=== PATIENT | female | born 1940 | race Caucasian/White ===

== ENCOUNTER 2019-02-13 02:32 | Inpatient (IN) | payer OTHER ==
[~2019-02-13] VITALS: Ht 154.9 cm; Wt 54.4 kg
[2019-02-13 02:36] VITALS: Ht 154.9 cm; Wt 54.4 kg
[2019-02-13 03:29] LABS: BASOPHIL % 0.6 % (0-2); PLATELET COUNT 292 x10^3mcL (130-400); RED CELL DISTRIBUTION WIDTH 13.1 % (11.5-14.5)
[2019-02-13 03:59] LABS: CALCIUM 10.3 mg/dL (8.5-10.1); CARBON DIOXIDE 24.5 mmol/L (21-32); CHLORIDE SERUM 106 mmol/L (98-107); CREATININE SERUM 0.9 mg/dL (0.6-1.0); GLUCOSE SERUM 123 mg/dL (74-106); POTASSIUM SERUM 4.7 mmol/L (3.5-5.1); SODIUM SERUM 144 mmol/L (136-145)
[2019-02-13 05:52] VITALS: BP 155/71
[2019-02-13 09:00] VITALS: BP 140/68
[2019-02-13 18:12] VITALS: BP 154/70
[2019-02-13 21:41] VITALS: BP 113/71
[2019-02-14 06:17] VITALS: BP 151/77
[2019-02-14 06:39] LABS: BASOPHIL % 0.4 % (0-2); PLATELET COUNT 252 x10^3mcL (130-400); RED CELL DISTRIBUTION WIDTH 13.1 % (11.5-14.5)
[2019-02-14 07:02] LABS: CALCIUM 8.3 mg/dL (8.5-10.1); CARBON DIOXIDE 25.2 mmol/L (21-32); CHLORIDE SERUM 110 mmol/L (98-107); CREATININE SERUM 0.6 mg/dL (0.6-1.0); GLUCOSE SERUM 108 mg/dL (74-106); MAGNESIUM 1.8 mg/dL (1.8-2.4); PHOSPHOROUS 2.9 mg/dL (2.5-4.9); SODIUM SERUM 144 mmol/L (136-145)
[2019-02-14 09:58] VITALS: BP 133/64
[2019-02-14] MEDS ORDERED: MOT800 PO (14:39)
[2019-02-14] MEDS ORDERED: PEPCID20 MG PO (14:43)
[2019-02-14 14:55] VITALS: BP 133/64
== END 2019-02-14 15:53 | disposition home or self-care (01) | DRG 544 ==
LOC: ED 02:32 → MU 04:34
PROVIDERS: Emergency Medicine; Internal Medicine; ADMIT Internal Medicine
PROC: 0QSGXZZ Reposition Right Tibia, External Approach (ICD-10-PCS; principal; 2019-02-13)
DX: M80.871A Other osteoporosis with current pathological fracture, right ankle and foot, initial encounter for fracture (principal); F41.9 Anxiety disorder, unspecified; W18.39XA Other fall on same level, initial encounter; Y93.89 Activity, other specified; Y92.89 Other specified places as the place of occurrence of the external cause; Z68.22 Body mass index [BMI] 22.0-22.9, adult
CPT/HCPCS: G0378; J1885; J2704; J7030; Q0092

== ENCOUNTER 2019-02-19 06:22 | Observation (INO) | payer OTHER ==
[2019-02-16 13:42] LABS: BASOPHIL % 0.7 % (0-2); PLATELET COUNT 273 x10^3mcL (130-400); RED CELL DISTRIBUTION WIDTH 12.9 % (11.5-14.5)
[2019-02-16 13:52] LABS: CALCIUM 9.3 mg/dL (8.5-10.1); CARBON DIOXIDE 26.7 mmol/L (21-32); CHLORIDE SERUM 106 mmol/L (98-107); CREATININE SERUM 0.8 mg/dL (0.6-1.0); GLUCOSE SERUM 113 mg/dL (74-106); POTASSIUM SERUM 3.2 mmol/L (3.5-5.1); SODIUM SERUM 143 mmol/L (136-145)
--- NOTE | 2019-02-16 15:00 | NUR ---
RECEIVED PREOP LAB TESTING RESULTS FROM LAB. K+=3.2. HV=[id number]. CXR=HYPEREXPANSION OF THE LUNGS SUGGESTING CHRONIC OBSTRUCTIVE PULMONARY DISEASE. EKG=SINUS OR ECTOPIC ATRIAL RHYTHM. NONSPECIFIC T ABNORMALITIES, LATERAL LEADS. CALL TO [facility]. SPOKE WITH DR GONZALEZ. UPDATED WITH LAB RESULTS. ORDERS TO CANCEL SURGERY AT THIS TIME. SHE WILL CALL PT TO DISCUSS FINDINGS AND PLAN OF CARE.
--- NOTE | 2019-02-16 15:15 | NUR ---
LAB RESULTS FAXED TO DR GONZALEZ AND PER HER REQUEST TO PTS PCP DR RENY STANTON.
[~2019-02-19] VITALS: Ht 154.9 cm; Wt 54.1 kg
--- NOTE | 2019-02-19 06:20 | NUR ---
PT ARRIVED IN ADMITTING TO CHECK IN FOR SURGERY. INITIALLY SURGERY WAS CANCELLED. CALL TO SURGERY TO CHECK ON STATUS. SPOKE WITH PALLAVI AND HE IS AWARE. TO HAVE BIOMETRY TEACHER CALL OUTPATIENT. PAGE TO DR GONZALEZ.
[~2019-02-19 06:22] MED LIST: MOT800 PO; PEPCID20 MG PO
--- NOTE | 2019-02-19 06:45 | NUR ---
SPOKE WITH DR GONZALEZ. SHE REPORTS "SPOKE WITH PT AND OR ON TUESDAY AND SHE IS STILL SCHEDULED FOR SURGERY THIS AM."
--- NOTE | 2019-02-19 06:55 | NUR ---
STAT SERUM POTASSIUM ORDERED PER DR GONZALEZ'S ORDER. LAB CALLED FOR STAT PREOP LAB DRAW.
--- NOTE | 2019-02-19 06:56 | NUR ---
DR GONZALEZ HERE IN OUTPATIENT DEPARTMENT TO SPEAK WITH PT AND DTR.
[2019-02-19 06:57] VITALS: BP 162/92
[2019-02-19 15:37] VITALS: BP 179/87
--- NOTE | 2019-02-19 15:40 | NUR ---
RECEIVED PT FROM OR VIA RAMAN. ORIENTED PT TO ROOM AND SURRUONDINGS. IV NOTED TO PATENT AND INTACT. INSTRUCTED PT ON THE USE OF CALL LIGHT FOR ASSISTANCE. ENDORSED PT TO PRIMARY NURSE MAGDIEL
[2019-02-19 16:10] LABS: CHOLESTEROL/HDL RATIO 3.1; MAGNESIUM 1.5 mg/dL (1.8-2.4); PHOSPHOROUS 3.5 mg/dL (2.5-4.9)
[2019-02-19 16:23] LABS: T3 TOTAL 0.94 ng/mL
[2019-02-19 16:32] LABS: FREE T4 1.37 ng/dL (0.76-1.46); FREE THYROXINE INDEX 3.2 ug/dL (1.4-4.5); T4(THYROXINE) 9.8 ug/dL (4.7-13.3)
--- NOTE | 2019-02-19 18:37 | NUR ---
BP ELEVATED, DR. CAMPBELL AWARE. PT GIVEN BP MED. SEE MAR. DENIES CHEST PAIN. NO DIZZINESS. NO HEADACHE. VISION WNL. NO TREMORS. NO N/V. CALM/COOPERATIVE. AA/OX4. REPORTS PAIN DECREASING TO RLE, TOLERABLE AT THIS TIME. DRESSING TO RLE CDI. IV WNL TO LH, NO REDNESS, NO SWELLING, NO INFILTRATION. PATENT AND FLUSHES WELL. SALINE LOCKED. FALL PRECAUTIONS IN PLACE. ASSISTED PT TO BEDPAN, VOIDS FREELY. BED IN LOW POSITION. CALL LIGHT WITHIN REACH. WILL ENDORSE TO ONCOMING SHIFT.
--- NOTE | 2019-02-19 20:00 | NUR ---
RECEIVED PT IN BED, RESTING QUIETLY.A/O X4. ABLE TO VERBALIZE NEEDS. RESP. EVEN AND UNLABORED. ON ROOM AIR, LUNG SOUNDS CLEAR BILAT. NO ACUTE DISTRESS NOTED. S/P ORIF RT ANKLE. LEG ELEVATED ON PILLOW, SPLINT TO RT LEG, ABLE TO WIGGLE TOES. DENIES PAIN OR ANY DISCOMFORT AT THIS TIME. HL TO LH, INTACT AND PATENT. AFEBRILE AND VITAL SIGNS STABLE. ASSISTED WITH HS CARE. CALL LIGHT WITHIN REACH. WILL CONTINUE TO MONITOR.
[2019-02-19 20:31] VITALS: BP 159/72
[2019-02-19 21:26] LABS: microscopic required? YES; urine erythrocyte 1+ (NEGATIVE)
--- NOTE | 2019-02-20 02:07 | NUR ---
NO COMPLAINTS NOTED. EYES CLOSED, APPEARS ASLEEP, EASILY AROUSABLE.RESP. EVEN AND UNLABORED. NO ACUTE DISTRESS NOTED. WILL CONTINUE TO MONITOR.
[2019-02-20 04:29] VITALS: BP 129/62
[2019-02-20 06:26] LABS: BASOPHIL % 0.2 % (0-2); PLATELET COUNT 271 x10^3mcL (130-400); RED CELL DISTRIBUTION WIDTH 13.4 % (11.5-14.5)
--- NOTE | 2019-02-20 06:27 | NUR ---
SLEPT WELL DURING THE NIGHT. NO COMPAINTS OF PAIN OR ANY DISCOMFORT NOTED. AFEBRILE AND VITAL SIGNS STABLE. RESP. EVEN AND UNLABORED. NO ACUTE DISTRESS NOTED. DUE MEDS GIVEN ORDERED.JENAE. WELL. RT LEG ELEVATED ON PILLOW, KEPT COMFORTABLE.VOIDING FREELY VIA BEDPAN. WILL CONTINUE TO MONITOR.
[2019-02-20 06:42] LABS: CALCIUM 8.9 mg/dL (8.5-10.1); CARBON DIOXIDE 25.6 mmol/L (21-32); CHLORIDE SERUM 102 mmol/L (98-107); CREATININE SERUM 0.6 mg/dL (0.6-1.0); GLUCOSE SERUM 126 mg/dL (74-106); MAGNESIUM 1.7 mg/dL (1.8-2.4); PHOSPHOROUS 3.3 mg/dL (2.5-4.9); POTASSIUM SERUM 3.5 mmol/L (3.5-5.1); SODIUM SERUM 139 mmol/L (136-145)
--- NOTE | 2019-02-20 07:20 | NUR ---
PT LAYING IN BED. AA/OX4. NO S/S OF ACUTE DISTRESS. NO SOB ON ROOM AIR. NO COMPLAINT OF PAIN AT THIS TIME. DRESSING TO RLE CDI. ELEVATED WITH PILLOW. SCD IN PLACE TO LLE. IV WNL TO LH, PATENT AND FLUSHES WELL. SALINE LOCKED. CALM/COOPERATIVE. NO CHEST PAIN. MEDSURG. BED IN LOW POSITION. CALL LIGHT WITHIN REACH. FALL PRECAUTIONS IN PLACE. INSTRUCTED TO USE CALL LIGHT TO CALL FOR ASSISTANCE PRN. VERBALIZED UNDERSTANDING. DAUGHTER AT BEDSIDE. WILL CONTINUE TO MONITOR.
[2019-02-20 09:32] VITALS: BP 137/58
--- NOTE | 2019-02-20 11:00 | NUR ---
PT COMPLAINT OF PAIN TO RLE, RATES 5/10, WORSE WITH MOVEMENT, RELIVED BY RELAXATION/REPOSITIONING AND MEDICATION. GIVEN PO PAIN MED. SEE MAR. AA/OX4. NO S/S OF ACUTE DISTRESS. NO SOB ON ROOM AIR. RLE ELEVATED WITH PILLOW. CALM/COOPERATIVE. ABLE TO MOVE TOES TO RLE, SENSATION WNL. CAP REFILLS <3 SEC RLE. DAUGHTER AT BEDSIDE. NO N/V. NO MIRZA. NO CHILLS. BED IN LOW POSITION. CALL LIGHT WITHIN REACH. WILL CONTINUE TO MONITOR.
[2019-02-20] MEDS ORDERED: LOV40I SC (13:51)
[2019-02-20] MEDS ORDERED: COLACE100 MG PO (13:53)
[2019-02-20 13:58] VITALS: BP 137/58
--- NOTE | 2019-02-20 15:25 | NUR ---
PT DISCHARGED TO HOME, AWAKE, ALERT, ORIENTED X4. DENIES PAIN. NO SOB ON ROOM AIR. FIBERGLASS CAST AND DRESSING TO RLE CDI. PULSES +2 BUE/BLE. CAP REFILLS <3 SEC BUE/BLE. SENSATION WNL TO BUE/BLE. PT DISCHARGE EDUCATION PROVIDED TO PATIENT. INSTRUCTED TO FOLLOW UP WITH PCP AT UPCOMING APPT. VERBALIZED UNDERSTANDING. IV REMOVED FROM LH, CATHETER IN TACT. PRESSURE APPLIED. SITE WNL. BELONGINGS WITH PATIENT. PRESCRIPTION WITH PATIENT. TAKEN BY WHEEL CHAIR TO DISCHARGE LOBBY BY JOSH VELÁSQUEZ ACCOMPANIED BY DAUGHTER.
== END 2019-02-20 16:24 | disposition home or self-care (01) | DRG 494 ==
LOC: DS 06:22 → OR 07:30 → MU 15:14
PROVIDERS: Internal Medicine; ADMIT Podiatrist Foot & Ankle Surgery
PROC: 0QSG04Z Reposition Right Tibia with Internal Fixation Device, Open Approach (ICD-10-PCS; 2019-02-19)
PROC: 0QSG04Z Reposition Right Tibia with Internal Fixation Device, Open Approach (ICD-10-PCS; 2019-02-19)
PROC: 0QSJ04Z Reposition Right Fibula with Internal Fixation Device, Open Approach (ICD-10-PCS; principal; 2019-02-19 07:30)
DX: S82.851A Displaced trimalleolar fracture of right lower leg, initial encounter for closed fracture (principal); E87.6 Hypokalemia; M81.0 Age-related osteoporosis without current pathological fracture; I10 Essential (primary) hypertension; F41.9 Anxiety disorder, unspecified; Z68.22 Body mass index [BMI] 22.0-22.9, adult; W50.2XXA Accidental twist by another person, initial encounter; Y92.017 Garden or yard in single-family (private) house as the place of occurrence of the external cause
CPT/HCPCS: 76001; 84439; 94150; C1713; G0378; J0690; J1650; J2704; J3010; J3490; J7120; Q0092